=== PATIENT | male | born 1990 | race Caucasian/White ===

== ENCOUNTER 2017-02-08 11:02 | Emergency (ER) | payer OTHER ==
[2017-02-08] MEDS ORDERED: Sodium Chloride 0.9% 10 ML Syringe FLUSH PRN (11:32)
[2017-02-08] MEDS ORDERED: Prochlorperazine 10 MG/2 ML SDV IVPUSH ONE (11:32)
[2017-02-08] MEDS ORDERED: diphenhydrAMINE 50 MG/ML SDV IVPUSH ONE (11:32)
[2017-02-08] MEDS ORDERED: Ketorolac 30 MG/ML SDV IVPUSH ONE (11:32)
--- NOTE | 2017-02-08 11:39 | EDM.PDOC ---
ED HPI GENERAL MEDICAL PROBLEM - General Chief Complaint: Headache Stated Complaint: HEADACHE Time Seen by Provider: 02/08/17 11:27 Source of Information: Reports: Patient History Limitations: Reports: No Limitations - History of Present Illness INITIAL COMMENTS - FREE TEXT/NARRATIVE: The patient presents with a headache. The pain is on the left side of his head. This started this morning. He does have a history of migraines. This feels worse. He denies any numbness. He says he feels weak all over but not on one side of the other. He has no fever or chills. He has nausea. He has some photophobia. He has some sinus pressure. Onset: Gradual Duration: Hour(s): (This morning) Location: Reports: Head Quality: Reports: Sharp Severity: Moderate Improves with: Reports: None Worsens with: Reports: None Associated Symptoms: Reports: Headaches, Nausea/Vomiting. Denies: Chest Pain, Shortness of Breath Left Upper Headache Pain Score (Numeric/FACES): 9 - Related Data Allergies Allergy/AdvReac Type Severity Reaction Status Date / Time Penicillins Allergy Hives Verified 02/08/17 11:18 Home Meds: Home Meds traZODone 60 mg PO DAILY 02/08/17 [History] Past Medical History Neurological History: Reports: Migraines Social & Family History - Tobacco Use Smoking Status *Q: Current Every Day Smoker Years of Tobacco use: 5 Packs/Tins Daily: 1 Used Tobacco, but Quit: No Second Hand Smoke Exposure: No - Caffeine Use Caffeine Use: Reports: Coffee - Recreational Drug Use Recreational Drug Use: No ED ROS GENERAL - Review of Systems Review Of Systems: See Below Constitutional: Reports: No Symptoms HEENT: Reports: Other (Sinus pressure) Respiratory: Reports: No Symptoms Cardiovascular: Reports: No Symptoms Endocrine: Reports: No Symptoms GI/Abdominal: Reports: Nausea. Denies: Abdominal Pain, Vomiting : Reports: No Symptoms Musculoskeletal: Reports: No Symptoms Skin: Reports: No Symptoms Neurological: Reports: Headache - Physical Exam Exam: See Below Exam Limited By: No Limitations General Appearance: Alert, No Apparent Distress Ears: Normal External Exam Nose: Normal Inspection Head Exam: Atraumatic, Normocephalic Neck: Normal Inspection Respiratory/Chest: No Respiratory Distress, Lungs Clear, Normal Breath Sounds Cardiovascular: Regular Rate, Rhythm, No Edema, No Murmur GI/Abdominal: Soft, Non-Tender, No Organomegaly, No Mass Neuro Exam (Abbreviated): Alert, Oriented, No Motor/Sensory Deficits Back Exam: Normal Inspection Extremities: Normal Inspection Skin Exam: Warm, Dry Course - Vital Signs Last Recorded V/S: Last Vital Signs Temp 97.1 F 02/08/17 11:14 Pulse 51 L 02/08/17 11:14 Resp 18 02/08/17 11:14 BP 123/75 02/08/17 11:14 Pulse Ox 97 02/08/17 11:14 - Orders/Labs/Meds Orders: Active Orders 24 hr Category Date Time Status Peripheral IV Care [RC] . DIRECTED Care 02/08/17 11:32 Active Sodium Chloride 0.9% [Saline Flush] Med 02/08/17 11:32 Active 10 ml FLUSH ASDIRECTED PRN Peripheral IV Insertion Adult [OM.PC] Routine Oth 02/08/17 11:32 Ordered Medication Orders Sodium Chloride (Saline Flush) 10 ml FLUSH ASDIRECTED PRN PRN Reason: Keep Vein Open Last Admin: 02/08/17 11:47 Dose: 10 ml Meds: Medications Generic Name Dose Route Start Last Admin Trade Name Freq PRN Reason Stop Dose Admin Sodium Chloride 10 ml 02/08/17 11:32 02/08/17 11:47 Saline Flush FLUSH 10 ml ASDIRECTED PRN Administration Keep Vein Open Discontinued Medications Generic Name Dose Route Start Last Admin Trade Name Freq PRN Reason Stop Dose Admin Diphenhydramine HCl 50 mg 02/08/17 11:32 02/08/17 11:47 Benadryl IVPUSH 02/08/17 11:33 50 mg ONETIME ONE Administration Ketorolac Tromethamine 30 mg 02/08/17 11:32 02/08/17 11:42 Toradol IVPUSH 02/08/17 11:33 30 mg ONETIME ONE Administration Prochlorperazine Edisylate 10 mg 02/08/17 11:32 02/08/17 11:44 Compazine IVPUSH 02/08/17 11:33 10 mg ONETIME ONE Administration - Re-Assessments/Exams Free Text/Narrative Re-Assessment/Exam: 02/08/17 11:38 I ordered an IV saline lock, toradol 30mg IV, compazine 10mg, and benadryl 50mg IV. 02/08/17 12:32 He is feeling better. Departure - Departure Time of Disposition: 12:35 Disposition: Home, Self-Care 01 Condition: Good Clinical Impression: Migraine - Discharge Information Referrals: PCP,None [Primary Care Provider] - Justyna Reynaga PA-C [Physician Director Learning Services] - 1 Week Forms: ED Department Discharge Additional Instructions: Go home and rest in a dark quiet room. Please return if you are worse. - My Orders Last 24 Hours: My Active Orders 02/08/17 11:32 Peripheral IV Care [RC] . DIRECTED Sodium Chloride 0.9% [Saline Flush] 10 ml FLUSH ASDIRECTED PRN Peripheral IV Insertion Adult [OM.PC] Routine - Assessment/Plan Last 24 Hours: My Active Orders 02/08/17 11:32 Peripheral IV Care [RC] . DIRECTED Sodium Chloride 0.9% [Saline Flush] 10 ml FLUSH ASDIRECTED PRN Peripheral IV Insertion Adult [OM.PC] Routine
== END 2017-02-08 12:41 | disposition home or self-care (01) ==
LOC: JD.ED 11:02
DX: G43.909 Migraine, unspecified, not intractable, without status migrainosus (principal); F17.210 Nicotine dependence, cigarettes, uncomplicated; Z88.0 Allergy status to penicillin; Z79.899 Other long term (current) drug therapy
CPT/HCPCS: 96374; 96375; 99284; J0780; J1200; J1885; J7050